=== PATIENT | female | born 1995 | race Hispanic/Latino ===

== ENCOUNTER 2021-10-02 09:37 | Outpatient (CLI) | payer OTHER | END 2021-10-02 09:38 | disposition home or self-care (01) | LOC: SCSMRI 09:37 | PROVIDERS: ATTEND Surgery | DX: M32.9 Systemic lupus erythematosus, unspecified (principal); I67.83 Posterior reversible encephalopathy syndrome; I63.9 Cerebral infarction, unspecified | CPT/HCPCS: 70551 ==